=== PATIENT | male | born 1950 | race Two or more races ===

== ENCOUNTER 2016-12-17 16:00 | Emergency (ER) | payer SELFPAY ==
[~2016-12-17] VITALS: Ht 182.9 cm; Wt 83.9 kg
--- NOTE | 2016-12-17 16:15 | NUR ---
PT BIB [facility] C/O ETOH INTOX. A/OX4. PT STATES "I JUST WANT TO GO HOME". UNSTEADY GAIT. NO OTHER COMPLAINTS. IN ER BED 11.
[2016-12-17 16:47] LABS: BASOPHILS % (AUTO) 0.2 % (0.0-2.0); EOSINOPHILS % (AUTO) 0.3 % (0.0-6.0); HEMATOCRIT 41 % (39-51); HEMOGLOBIN 13.9 g/dL (13.5-17.5); LYMPHOCYTES # (AUTO) 1.4 /CMM (0.8-4.8); LYMPHOCYTES % (AUTO) 13.8 % (20.0-44.0); MEAN CORPUSCULAR HEMOGLOBIN 29 PG (26.0-33.0); MEAN CORPUSCULAR HGB CONC 34 g/dl (31.0-36.0); MEAN CORPUSCULAR VOLUME 87 fL (80-96); MONOCYTES # (AUTO) 1.2 /CMM (0.1-1.30); MONOCYTES % (AUTO) 11.4 % (2.0-12.0); NEUTROPHILS # (AUTO) 7.7 /CMM (1.8-8.9); NEUTROPHILS % (AUTO) 74.3 % (43.0-81.0); PLATELET COUNT (AUTO) 267 /CMM (150-450); RDW COEFFICIENT OF VARIATION 15.1 (11.5-15.0); RED BLOOD CELL COUNT(AUTO) 4.75 MIL/uL (4.5-6.0); WHITE BLOOD COUNT (AUTO) 10.3 K/uL (4.3-11.0)
[2016-12-17] MEDS ORDERED: IV NS 0.9% 1,000 ML ONE (16:50)
[2016-12-17] MEDS ORDERED: PANTOPRAZOLE 40 MG VIAL ONE (16:50)
[2016-12-17] MEDS ORDERED: IV SET PRIMARY 1 EA INFUS.SET MC ONE (16:50)
[2016-12-17] MEDS ORDERED: PANTOPRAZOLE 40 MG VIAL IV ONE (17:00)
[2016-12-17] MEDS ORDERED: IV NS 0.9% 1,000 ML BAG IV ONE (17:00)
[2016-12-17 17:02] LABS: CREATININE 2.8 mg/dL (0.6-1.3); POTASSIUM 3.6 mmol/L (3.5-5.1)
[2016-12-17 17:08] LABS: ALBUMIN 4.1 g/dL (3.4-5.0); BILIRUBIN,DIRECT 0.1 mg/dL (0.0-0.2); BILIRUBIN,TOTAL 0.7 mg/dL (0.2-1.0); TOTAL PROTEIN, SERUM 3.3 g/dL (6.4-8.2)
[2016-12-17 17:26] LABS: INR 0.98 (0.87-1.13); PROTHROMBIN TIME 10.5 SECS (9.5-12.7)
--- NOTE | 2016-12-17 17:33 | NUR ---
Patient is resting comfortably in bed with eyes closed. Easily aroused. VSS
--- NOTE | 2016-12-17 18:19 | NUR ---
IV removed. Catheter intact and site benign. Pressure and 4x4 applied to site. No bleeding noted. Patient discharged to home in stable condition. Written and verbal after care instructions given. Patient verbalizes understanding of instruction. AMBULATORY WITH STEADY GAIT. PROVIDED WITH BUS TOKENS PER REQUEST.
[2016-12-17 18:27] VITALS: BP 146/65
== END 2016-12-17 18:28 | disposition home or self-care (01) ==
LOC: ER 16:02
DX: F10.129 Alcohol abuse with intoxication, unspecified (principal); E86.0 Dehydration; N18.9 Chronic kidney disease, unspecified
CPT/HCPCS: 36415; 80048-TC; 80076-TC; 83690-TC; 85025-TC; 85730-TC; A4606; C9113; J7030; Z7610

== ENCOUNTER 2020-07-11 09:23 | Inpatient (IN) | payer MEDICARE ==
[~2020-07-11] VITALS: Ht 170.2 cm; Wt 55.8 kg
--- NOTE | 2020-07-11 09:45 | NUR ---
bibra c/o progressive weakness x 6 months. vs checked. hooked on monitor. iv acess started. blood draw done sent to lab. seen by
[2020-07-11 10:00] LABS: BASOPHILS # (AUTO) 0.1 /CMM (0.0-0.2); BASOPHILS % (AUTO) 0.7 % (0.0-2.0); EOSINOPHILS % (AUTO) 0.9 % (0.0-6.0); HEMATOCRIT 44 % (39-51); HEMOGLOBIN 14.5 g/dL (13.5-17.5); LYMPHOCYTES # (AUTO) 1.2 /CMM (0.8-4.8); LYMPHOCYTES % (AUTO) 15.1 % (20.0-44.0); MEAN CORPUSCULAR HGB CONC 33 g/dl (31.0-36.0); MEAN CORPUSCULAR VOLUME 88 fL (80-96); MONOCYTES # (AUTO) 0.7 /CMM (0.1-1.30); MONOCYTES % (AUTO) 8.3 % (2.0-12.0); NEUTROPHILS # (AUTO) 6.1 /CMM (1.8-8.9); PLATELET COUNT (AUTO) 419 /CMM (150-450); RED BLOOD CELL COUNT(AUTO) 5.03 MIL/uL (4.5-6.0); WHITE BLOOD COUNT (AUTO) 8.2 K/uL (4.3-11.0)
[2020-07-11 10:40] LABS: ALANINE AMINOTRANSFERASE 10 U/L (12-78); ALBUMIN 3.3 g/dL (3.4-5.0); ALKALINE PHOSPHATASE 85 U/L (46-116); ASPARTATE AMINOTRANSFERASE 22 U/L (15-37); BILIRUBIN,DIRECT 0.4 mg/dL (0.0-0.2); BILIRUBIN,TOTAL 1.2 mg/dL (0.2-1.0); CALCIUM, SERUM 12.7 mg/dL (8.5-10.1); CARBON DIOXIDE 26 mmol/L (21-32); CHLORIDE 92 mmol/L (98-107); CREATININE 1.5 mg/dL (0.6-1.3); GLUCOSE 103 mg/dL (74-106); POTASSIUM 3.8 mmol/L (3.5-5.1); SODIUM SERUM 136 mmol/L (136-145); TOTAL PROTEIN, SERUM 8.2 g/dL (6.4-8.2); UREA NITROGEN, BLOOD 26 mg/dL (7-18)
--- NOTE | 2020-07-11 10:55 | NUR ---
CALLED [facility], PAGED DR FARNSWORTH
[2020-07-11] MEDS ORDERED: IV NS 0.9% 1,000 ML BAG IV ONE (11:00)
--- NOTE | 2020-07-11 11:07 | NUR ---
pt unable to provide urine specimen a the moment. urinal provided. iv fluids running.
[2020-07-11] MEDS ORDERED: IV NS 0.9% 500 ML IV ONE (11:30)
--- NOTE | 2020-07-11 11:43 | NUR ---
covid pcr and antigen collected sent to lab
[2020-07-11] MEDS ORDERED: ACETAMINOPHEN 325 MG TABLET PO PRN (12:00)
[2020-07-11] MEDS ORDERED: ONDANSETRON HCL/PF 4 MG/2 ML VIAL IVP PRN (12:00)
[2020-07-11] MEDS ORDERED: Z GUARD REMEDY 2 OZ OINT TP PRN (12:00)
[2020-07-11] MEDS ORDERED: MAG HYDROX/AL HYDROX/SIMETH 30 ML UDC PO PRN (12:00)
[2020-07-11] MEDS ORDERED: MAGNESIUM HYDROXIDE 30 ML UDC PO PRN (12:00)
[2020-07-11] MEDS ORDERED: ENOXAPARIN SODIUM 40 MG/0.4 ML DISP.SYRIN SQ ONE (12:46)
[2020-07-11] MEDS: IV NS 0.9% 1,000 ML IV PRN (12:54)
[2020-07-11] MEDS: ENOXAPARIN SODIUM 40 MG/0.4 ML DISP.SYRIN SQ SCH (12:57)
[2020-07-11 13:15] LABS: BILIRUBIN,URINE Negative (NEGATIVE); COLOR,URINE YELLOW (YELLOW); LEUKOCYTE ESTERASE ,URINE Negative (NEGATIVE); NITRITE, URINE Negative (NEGATIVE); PH,URINE 5.5 (5.0-8.0); PROTEIN,URINE Negative (NEGATIVE); UGLUCOSE Negative (NEGATIVE)
[2020-07-11 13:46] LABS: WBC,URINE 0-2 /HPF (0-3)
[2020-07-11 13:48] LABS: BACTERIA,URINE Rare /HPF (None Seen); SQUAMOUS EPITHELIAL CELL,UR 0-2 /HPF (None Seen)
[2020-07-11] MEDS ORDERED: VANCOMYCIN 1 GM in IV D5W 250 ML IV ONE (16:00)
--- NOTE | 2020-07-11 19:16 | NUR ---
pt back from ct
[2020-07-11] MEDS: CEFTRIAXONE 1 G in IV D5W 50 ML IV SCH (20:03)
--- NOTE | 2020-07-12 00:44 | NUR ---
PATIENT REPOSITIONED. PATIENT IS KEPT COMFORTABLE. NO COMPLAINTS AT THIS TIME. PATIENT IS PROVIDED WITH PILLOWS FOR COMFORT.
--- NOTE | 2020-07-12 03:09 | NUR ---
PATIENT TITRATED FROM 4L TO 2L N/C
[2020-07-12 04:35] LABS: BASOPHILS % (AUTO) 0.1 % (0.0-2.0); HEMATOCRIT 40 % (39-51); HEMOGLOBIN 13.2 g/dL (13.5-17.5); LYMPHOCYTES # (AUTO) 1.1 /CMM (0.8-4.8); LYMPHOCYTES % (AUTO) 7.9 % (20.0-44.0); MEAN CORPUSCULAR HGB CONC 33 g/dl (31.0-36.0); MEAN CORPUSCULAR VOLUME 86 fL (80-96); MONOCYTES # (AUTO) 0.7 /CMM (0.1-1.30); MONOCYTES % (AUTO) 5.5 % (2.0-12.0); NEUTROPHILS # (AUTO) 11.6 /CMM (1.8-8.9); NEUTROPHILS % (AUTO) 86.5 % (43.0-81.0); PLATELET COUNT (AUTO) 374 /CMM (150-450); RED BLOOD CELL COUNT(AUTO) 4.66 MIL/uL (4.5-6.0); WHITE BLOOD COUNT (AUTO) 13.4 K/uL (4.3-11.0)
[2020-07-12 04:48] LABS: CALCIUM, SERUM 11.1 mg/dL (8.5-10.1); CARBON DIOXIDE 31 mmol/L (21-32); CHLORIDE 98 mmol/L (98-107); CREATININE 1.5 mg/dL (0.6-1.3); GLUCOSE 122 mg/dL (74-106); MAGNESIUM 1.3 mg/dL (1.8-2.4); PHOSPHORUS 2.8 mg/dL (2.5-4.9); POTASSIUM 4.1 mmol/L (3.5-5.1); SODIUM SERUM 136 mmol/L (136-145); UREA NITROGEN, BLOOD 23 mg/dL (7-18)
[2020-07-12 04:56] LABS: CHOLESTEROL 130 mg/dL (<200); HDL CHOLESTEROL 40 mg/dL (40-60); LDL 74 mg/dL (0-99); THYROID STIMULATING HORMONE 1.301 uIU/mL (0.358-3.74); TRIGLYCERIDES 66 mg/dL (30-150)
[2020-07-12] MEDS: IV NS 0.9% 1,000 ML IV PRN (05:32)
[2020-07-12] MEDS: VANCOMYCIN 0.75 GM in IV D5W 250 ML IV SCH ×2 (05:32→18:14)
[2020-07-12] MEDS ORDERED: PANTOPRAZOLE 40 MG TABLET.DR PO SCH (07:30)
--- NOTE | 2020-07-12 07:31 | NUR ---
ON ROOM AIR WITH 99% SPO2.
--- NOTE | 2020-07-12 07:35 | NUR ---
REPORT GIVEN TO SHAHEEN AMBROSIO FOR PATRICIA.
[2020-07-12] MEDS ORDERED: ENOXAPARIN SODIUM 40 MG/0.4 ML DISP.SYRIN SQ ONE (08:12)
[2020-07-12] MEDS ORDERED: PANTOPRAZOLE 40 MG TABLET.DR PO ONE (08:13)
[2020-07-12] MEDS: ENOXAPARIN SODIUM 40 MG/0.4 ML DISP.SYRIN SQ SCH (08:37)
[2020-07-12] MEDS ORDERED: Magnesium 1GM/D5W 100ML PREMIX 300 ML IV ONE (09:39)
[2020-07-12] MEDS: Magnesium 1GM/D5W 100ML PREMIX 100 ML IV SCH ×3 (09:42→12:10)
--- NOTE | 2020-07-12 10:35 | NUR ---
WOUND CARE CONSULT: PT PRESENTS WITH LARGE RAISED RED LESION TO RT SIDE OF NECK WITH SMALL OPENING AND PINK DRAINAGE, SMALL AMOUNT, PRESENT ON ADMISSION. RECOMMENDATIONS MADE FOR SKIN PROTECTION. DISCUSSED WITH NURSING STAFF. WILL SEE PRN.
--- NOTE | 2020-07-12 10:49 | NUR ---
SCIENTIFIC RESEARCH MANAGER SCIENTIFIC RESEARCH MANAGER SPOKE TO DNP CYNDY LOERA, PER DNP, HE WILL EVALUATE PATIENT AND NOTIFY SURGICAL CONSULT FOR NECK LESION.
[2020-07-12] MEDS ORDERED: IV NS 0.9% 250 ML IV ONE (11:32)
[2020-07-12] MEDS ORDERED: IOHEXOL-300 100 ML VIAL IV ONE (11:32)
[2020-07-12] MEDS ORDERED: CT SWABBABLE VALVE TRANS SET 1 EA INFUS.SET MC ONE (11:32)
[2020-07-12] MEDS ORDERED: PANTOPRAZOLE 40 MG VIAL IV SCH (14:30)
--- NOTE | 2020-07-12 16:46 | NUR ---
PER HEM/ONC, HOLD [facility] TOMORROW AM FOR CT NEEDLE GUIDED BIOPSY.
[2020-07-12] MEDS: CEFTRIAXONE 1 G in IV D5W 50 ML IV SCH (19:55)
--- NOTE | 2020-07-12 21:24 | NUR ---
ASSUMED CARE. REPORT RECEIVED FROM AM SHIFT DAILY JAMISON. PT AAOX4 NO ACUTE DISTRESS NOTED, RESP EVEN AND UNLABORED. PT DENIES PAIN OR DISCOMFORT AT THIS TIME. PT REMAINS ON CARDIAC MONITORING SHOWS NSR-79, CONTINUOUS POX WITH 02 SAT 95% ON RA. WILL CONTINUE TO MONITOR PT CLOSELY. CALL LIGHT WITHIN REACH.
--- NOTE | 2020-07-12 22:53 | NUR ---
BED LINEN CHANGED, GOWN CHANGED, PT ABLE TO REPOSITION SELF. CALL LIGHT WITHIN REACH. WILL CONTINUE TO MONITOR.
--- NOTE | 2020-07-13 01:00 | NUR ---
PT ASLEEP, NO ACUTE DISTRESS NOTED, RESP EVEN AND UNLABORED. NO PAIN OR DISCOMFORT NOTED AT THIS TIME. CALL LIGHT WITHIN REACH. WILL CONTINUE TO MONITOR PT CLOSELY.
--- NOTE | 2020-07-13 05:12 | NUR ---
PROCESSING SPEC AT BEDSIDE FOR AM LAB DRAW.
[2020-07-13 05:44] LABS: BASOPHILS # (AUTO) 0.1 /CMM (0.0-0.2); BASOPHILS % (AUTO) 0.8 % (0.0-2.0); EOSINOPHILS % (AUTO) 0.8 % (0.0-6.0); HEMATOCRIT 42 % (39-51); HEMOGLOBIN 13.6 g/dL (13.5-17.5); LYMPHOCYTES # (AUTO) 1.3 /CMM (0.8-4.8); LYMPHOCYTES % (AUTO) 11.6 % (20.0-44.0); MEAN CORPUSCULAR HGB CONC 32 g/dl (31.0-36.0); MEAN CORPUSCULAR VOLUME 86 fL (80-96); MONOCYTES # (AUTO) 0.7 /CMM (0.1-1.30); NEUTROPHILS % (AUTO) 80.8 % (43.0-81.0); PLATELET COUNT (AUTO) 371 /CMM (150-450); RED BLOOD CELL COUNT(AUTO) 4.87 MIL/uL (4.5-6.0); WHITE BLOOD COUNT (AUTO) 11.1 K/uL (4.3-11.0)
[2020-07-13 05:59] LABS: CALCIUM, SERUM 10.7 mg/dL (8.5-10.1); CREATININE 1.1 mg/dL (0.6-1.3); MAGNESIUM 1.8 mg/dL (1.8-2.4); POTASSIUM 5.2 mmol/L (3.5-5.1)
--- NOTE | 2020-07-13 05:59 | NUR ---
CONSENT FOR US GUIDED NECK BIOPSY PLACED IN CHART. SURGICAL CHECKLIST PLACED IN PT CHART.
--- NOTE | 2020-07-13 06:15 | NUR ---
SL LAC 18G INFILTRATED, REMOVED WITH ANGIOCATH INTACT, 4X4 AND PRESSURE APPLIED.
[2020-07-13] MEDS: VANCOMYCIN 0.75 GM in IV D5W 250 ML IV SCH ×2 (06:20→18:14)
[2020-07-13] MEDS: IV NS 0.9% 1,000 ML IV PRN (06:20)
--- NOTE | 2020-07-13 07:32 | NUR ---
REPORT GIVEN TO AM SHIFT DAILY JAMISON.
[2020-07-13] MEDS ORDERED: ENOXAPARIN SODIUM 40 MG/0.4 ML DISP.SYRIN SQ ONE (08:26)
[2020-07-13] MEDS ORDERED: PANTOPRAZOLE 40 MG VIAL ONE (08:26)
[2020-07-13] MEDS: ENOXAPARIN SODIUM 40 MG/0.4 ML DISP.SYRIN SQ SCH (08:33)
[2020-07-13] MEDS: PANTOPRAZOLE 40 MG VIAL IV SCH (08:33)
--- NOTE | 2020-07-13 09:00 | NUR ---
PATIENT A/OX4, BREATHING EVEN AND UNLABORED, NO SOB NOTED. NEEDS ATTENDED. KEPT COMFORTABLE. IVF INFUSING AND TOLERATING WELL.
[2020-07-13] MEDS ORDERED: IOHEXOL-300 100 ML VIAL IV ONE (09:20)
[2020-07-13] MEDS ORDERED: IV NS 0.9% 250 ML IV ONE (09:20)
[2020-07-13] MEDS ORDERED: CT SWABBABLE VALVE TRANS SET 1 EA INFUS.SET MC ONE (09:20)
--- NOTE | 2020-07-13 15:19 | NUR ---
PATIENT CAME BACK FROM US GUIDED BIOPSY. TOLERATED PROCEDURE WELL. BACK IN BED. WILL CONTINUE TO MONITOR VS.
--- NOTE | 2020-07-13 15:30 | NUR ---
DRESSING ON NECK REINFORCED.
--- NOTE | 2020-07-13 19:26 | NUR ---
ASSUMED CARE. REPORT RECEIVED FROM AM SHIFT DAILY JAMISON. PT AAOX4 NO ACUTE DISTRESS NOTED, RESP EVEN AND UNLABORED. PT DENIES PAIN OR DISCOMFORT AT THIS TIME. PT REMAINS ON CARDIAC MONITORING SHOWS NSR-80'S, CONTINUOUS POX WITH 02 SAT 96% ON RA. WILL CONTINUE TO MONITOR PT CLOSELY. CALL LIGHT WITHIN REACH.
[2020-07-13] MEDS: CEFTRIAXONE 1 G in IV D5W 50 ML IV SCH (19:35)
[2020-07-14] MEDS: IV NS 0.9% 1,000 ML IV PRN ×2 (00:39→17:14)
--- NOTE | 2020-07-14 00:44 | NUR ---
PT AAOX4, NO ACUTE DISTRESS NOTED, RESP EVEN AND UNLABORED. REMAINS PAIN FREE AND DENIES ANY DISCOMFORT NOTED AT THIS TIME. CALL LIGHT WITHIN REACH. WILL CONTINUE TO MONITOR PT CLOSELY.
[2020-07-14 05:27] LABS: CALCIUM, SERUM 10.4 mg/dL (8.5-10.1); CREATININE 1.1 mg/dL (0.6-1.3); POTASSIUM 3.4 mmol/L (3.5-5.1)
--- NOTE | 2020-07-14 05:56 | NUR ---
neck dressing reinforced with 4x4 gauze and kerlix applied.
[2020-07-14] MEDS: VANCOMYCIN 0.75 GM in IV D5W 250 ML IV SCH ×2 (06:05→17:50)
--- NOTE | 2020-07-14 06:16 | NUR ---
total pt care done, bed linen changed. provided new warm blankets. pt remains pain free at this time. no acute distress noted, resp even and unlabored. call light wihtin reach. will endorse to am shift.
[2020-07-14] MEDS ORDERED: PANTOPRAZOLE 40 MG VIAL ONE (07:50)
[2020-07-14] MEDS ORDERED: ENOXAPARIN SODIUM 40 MG/0.4 ML DISP.SYRIN SQ ONE (07:50)
[2020-07-14] MEDS: ENOXAPARIN SODIUM 40 MG/0.4 ML DISP.SYRIN SQ SCH (08:21)
[2020-07-14] MEDS: PANTOPRAZOLE 40 MG VIAL IV SCH (08:21)
[2020-07-14] MEDS ORDERED: CEFT1VIA15 IV (09:13)
[2020-07-14] MEDS ORDERED: VANC750F2 IV (09:13)
[2020-07-14] MEDS ORDERED: OLME40TA12 PO (09:14)
[2020-07-14 10:01] LABS: BASOPHILS # (AUTO) 0.1 /CMM (0.0-0.2); BASOPHILS % (AUTO) 1.3 % (0.0-2.0); EOSINOPHILS % (AUTO) 2.3 % (0.0-6.0); HEMATOCRIT 40 % (39-51); HEMOGLOBIN 13.5 g/dL (13.5-17.5); LYMPHOCYTES # (AUTO) 1.2 /CMM (0.8-4.8); LYMPHOCYTES % (AUTO) 13.4 % (20.0-44.0); MEAN CORPUSCULAR HGB CONC 33 g/dl (31.0-36.0); MEAN CORPUSCULAR VOLUME 86 fL (80-96); MONOCYTES # (AUTO) 0.7 /CMM (0.1-1.30); PLATELET COUNT (AUTO) 375 /CMM (150-450); WHITE BLOOD COUNT (AUTO) 9.3 K/uL (4.3-11.0)
[2020-07-14] MEDS ORDERED: POTASSIUM CL. PREMIX PERIPHER. 100 ML ONE (10:38)
[2020-07-14] MEDS: POTASSIUM CL. PREMIX PERIPHER. 50 ML IV SCH ×2 (10:44→11:57)
--- NOTE | 2020-07-14 13:18 | NUR ---
patient refused MRI, explained risks and benefits, still refused. Informed Zia Alexandria.
--- NOTE | 2020-07-14 14:10 | NUR ---
INFORMED CYNDY LOERA THAT PATIENT'S SBP RANGES FROM 160S-170S AND PATIENT STILL NPO AT THIS TIME. WAITING FOR MD ORDERS.
--- NOTE | 2020-07-14 15:34 | NUR ---
BANNER BED 118-1
--- NOTE | 2020-07-14 15:55 | NUR ---
REPORT GIVEN TO MAYNOR AMBROSIO FOR PATRICIA.
--- NOTE | 2020-07-14 16:22 | NUR ---
PATIENT TRANSFERRED TO ROOM 118-1 VIA ACLS PROTOCOL. NO DISTRESS NOTED. NEEDS ATTENDED.
--- NOTE | 2020-07-14 16:30 | NUR ---
ms rn note received patent from er with dx weakness and rt side neck mass, ,admitted under care dr jonas Shahid , lt fa hl intact and flushed well , hospital orientation done,vs,taken , using urinal for voiding , on npo status at this time , body check done , rt side with dressing would picture done, call light within reach , bed in lowest and locked position , on 2l nc saturation 98% at this time , no sob noted at this time
[2020-07-14 16:36] VITALS: BP 187/98
--- NOTE | 2020-07-14 17:43 | NUR ---
ms rn note spoke with dr jonas Shahid notified that bp 187/98 and wants to have flus hot , stated no at this time will order hospice eval
--- NOTE | 2020-07-14 19:17 | NUR ---
MS RN NOTES PATIENT IN BED, AWAKE, ALERT AND ORIENTED X 3-4. BREATHING EVEN AND UNLABORED ON ROOM AIR. SHOWS NO SIGNS OF ACUTE RESPIRATORY DISTRESS. NO ACUTE PAIN. IV ON L AC 18 RUNNING NS AT 100ML/HR. SHOWS NO SIGNS OF INFILTRATION, NO REDNESS. SAFETY PRECAUTIONS IN PLACE. BED IN LOWEST POSITION, LOCKED, AND CALL LIGHT KEPT WITHIN REACH. WILL CONTINUE TO MONITOR.
[2020-07-14 20:00] VITALS: BP 169/102
[2020-07-14] MEDS: AMPICILLIN 1 GM in IV NS 0.9% 50 ML IV SCH (20:21)
[2020-07-15 04:00] VITALS: BP 173/107
--- NOTE | 2020-07-15 04:01 | NUR ---
MS RN NOTES TRANSFERRED TO 321-2, GIVEN REPORT TO MICHAEL AMBROSIO FOR PATRICIA
--- NOTE | 2020-07-15 04:03 | NUR ---
RN NOTES RECEIVED PT. FROM ALESSANDRA , PT. IS A/OX4, NOT IN DISTRESS, NO PAIN NOTED, BED IN LOCKED POSITION, CALL LIGHT WITHIN REACH, SIDERAILSUPX2, WILL CONTINUE TO MONITOR
--- NOTE | 2020-07-15 06:45 | NUR ---
RN NOTES AWAKE, NOT IN DISTRESS, NO PAIN NOTED, MORNING CARE RENDERED, PT. NEEDS ATTENDED
[2020-07-15] MEDS: AMPICILLIN 1 GM in IV NS 0.9% 50 ML IV SCH ×3 (06:52→20:39)
[2020-07-15] MEDS: IV NS 0.9% 1,000 ML IV PRN ×2 (07:01→20:48)
[2020-07-15 08:00] VITALS: BP 161/95
--- NOTE | 2020-07-15 08:12 | NUR ---
WOUND CARE CONSULT: PT SEEN FOR SKIN ASSESSMENT AND NOTED TO HAVE BLANCHABLE REDNESS TO SACRUM, HEELS AND LEFT HIP WITH SCARRING TO RT HIP, PRESENT ON ADMISSION. DRESSING TO RT SIDE OF NECK IS DRY AND INTACT. RECOMMENDATIONS MADE FOR SKIN PROTECTION. DISCUSSED WITH NURSING STAFF. WILL SEE PRN. RHODES IN AGREEMENT WITH PLAN OF CARE.
[2020-07-15] MEDS: ENOXAPARIN SODIUM 40 MG/0.4 ML DISP.SYRIN SQ SCH (09:01)
[2020-07-15] MEDS: PANTOPRAZOLE 40 MG VIAL IV SCH (09:02)
[2020-07-15 09:46] LABS: CALCIUM, SERUM 10.5 mg/dL (8.5-10.1); CREATININE 1.1 mg/dL (0.6-1.3); POTASSIUM 2.9 mmol/L (3.5-5.1)
[2020-07-15] MEDS: POTASSIUM CL. PREMIX PERIPHER. 50 ML IV SCH ×4 (11:13→14:19)
[2020-07-15 16:00] VITALS: BP 166/96
[2020-07-15] MEDS ORDERED: PAMIDRONATE 90 MG in IV NS 0.9% 500 ML IV ONE (16:00)
--- NOTE | 2020-07-15 16:00 | NUR ---
m/s parking regulation enforcement officer: yard engineer f/u seen by dr. musa and discussed plan of care with pt.
--- NOTE | 2020-07-15 19:05 | NUR ---
m/s chief green officer: notes report given to anitha (leeroy) for continuity of care.
--- NOTE | 2020-07-15 19:15 | NUR ---
RN NOTES: RECEIVED LYING COMFORTABLY IN BED IN SEMI-FOWLERS POSITION, WITH O2 AT 2L/MIN VIA NC SPO2-98%, A/0X4, ORIENTED TO UNIT AND STAFF, ON NPO, IV CANNULA ON LFA G#18, WITH PAMIDRONATE INFUSION AT 125 ML/HR X 4 HOURS ONGOING STARTED AT 1600 PER ENDORSEMENT,ALMOST FINISHING THEN TO FOLLOW WITH NS AT 100 ML/HR, FALL SAFETY AND ASPIRATION PRECAUTION OBSERVED.BED LOW AND LOCKED, KEPT CALL LIGHT WITHIN EASY REACH.
[2020-07-15 20:00] VITALS: BP 133/80
--- NOTE | 2020-07-15 20:49 | NUR ---
RN NOTES: PAMIDRONATE COMPLETED AT 2039, IVF RESUME NEW BAG ON NS AT 125ML/HR STARTED AT 2047, NO PAIN OR DISCOMFORT, DRESSING ON THE NECK CLEAN AND INTATC NO DRAINAGE NOTED, KEPT CALL LIGHT WITHIN EASY REACH.
--- NOTE | 2020-07-16 03:19 | NUR ---
RN NOTES: NO PAIN OR DISCOMFORT, AWAKE IN BETWEEN, HE WATCH TV, NEEDS ATTENDED, HE GO BACK TO SLEEP, KEPT CALL LIGHT WITHIN EASY REACH, ON CLOSE VISUAL CHECK.
[2020-07-16] MEDS: AMPICILLIN 1 GM in IV NS 0.9% 50 ML IV SCH ×3 (04:06→21:04)
--- NOTE | 2020-07-16 05:29 | NUR ---
RN NOTES: AWAKE, MORNING CARE DONE, VERY COOPERATIVE, NO DISCOMFORT, PLEASANT PERSONALITY, NEEDS ATTENDED.
[2020-07-16 07:04] LABS: CALCIUM, SERUM 9.9 mg/dL (8.5-10.1); CREATININE 1.1 mg/dL (0.6-1.3); POTASSIUM 3.3 mmol/L (3.5-5.1)
--- NOTE | 2020-07-16 07:12 | NUR ---
RN NOTES: ENDORSED ASLEEP, TOTAL URINE OUTPUT-950, STILL NPO, FOR SWALLOW EVALUATION, FOR BLOOD TEST THIS MORNING, F/U PER DR. BURROWS HE IS A GOOD CANDIDATE FOR CHEMO.ENDORSED FOR CONTINUITY OF CARE.
--- NOTE | 2020-07-16 07:32 | NUR ---
MS RN OPENING NOTES: RECEIVED PT AWAKE IN BED IN NO ACUTE SIGNS OF DISTRESS. HOB ELEVATED. A/0X4, ABLE TO MAKE NEEDS KNOWN, DENIES PAIN BUT WITH MILD DISCOMFORTS ON HIS NECK. ON SUPPLEMENTAL 02 VIA N/C AT 2LPM, TOLERATING WELL , BREATHING EVEN AND UNLABORED. IV ACCESS ON LFA G#18 INTACT AND PATENT WITH IVF OF NS @ 100ML/HR INFUSING WELL. SAFETY AND ASPIRATION PRECAUTION MAINTAINED: BED IN LOWEST LOCKED POSITION WITH SR UP X2. CALL LIGHT WITHIN EASY REACH. WILL CONTINUE TO MONITOR PT.
[2020-07-16 08:00] VITALS: BP 160/93
[2020-07-16] MEDS: PANTOPRAZOLE 40 MG VIAL IV SCH (08:31)
[2020-07-16] MEDS: ENOXAPARIN SODIUM 40 MG/0.4 ML DISP.SYRIN SQ SCH (08:32)
[2020-07-16] MEDS: POTASSIUM CL. PREMIX PERIPHER. 50 ML IV SCH ×2 (09:54→11:09)
[2020-07-16] MEDS: IV NS 0.9% 1,000 ML IV PRN (13:21)
[2020-07-16 16:00] VITALS: BP 150/93
--- NOTE | 2020-07-16 18:48 | NUR ---
MS RN CLOSING NOTES: PT IN BED WATCHING TV AT THIS TIME. HOB ELEVATED. A/0X4, ABLE TO MAKE NEEDS KNOWN. DRESSING ON RIGHT NECK WOUND C/D/I. ON SUPPLEMENTAL 02 VIA N/C AT 2LPM, TOLERATING WELL, BREATHING EVEN AND UNLABORED. IV ACCESS ON LFA G#18 INTACT AND PATENT WITH IVF OF NS @ 100ML/HR INFUSING WELL. ALL NEEDS AND CARE ATTENDED WELL. SAFETY AND ASPIRATION PRECAUTION MAINTAINED: BED IN LOWEST LOCKED POSITION WITH SR UP X2. CALL LIGHT WITHIN EASY REACH. WILL ENDORSE PATRICIA TO NIGHT NURSE.
--- NOTE | 2020-07-16 20:00 | NUR ---
RN NOTES RECEIVED PT. AWAKE ON BED, A/OX3, NOT IN DISTRESS, DENIES PAIN, DRESSING ON HIS NECK DRY AND INTACT, CALL LIGHT WITHIN REACH, SIDERAILSUPX2, WILL CONTINUE TO MONIOTR
[2020-07-16 20:51] VITALS: BP 167/99
[2020-07-17] MEDS: AMPICILLIN 1 GM in IV NS 0.9% 50 ML IV SCH ×2 (04:33→13:42)
[2020-07-17] MEDS: IV NS 0.9% 1,000 ML IV PRN (05:27)
--- NOTE | 2020-07-17 06:50 | NUR ---
RN NOTES SLEEPING BUT AROUSABLE, MORNING CARE RENDERED, DENIES PAIN,. NO SOB, CALL LIGHT WITHIN REACH,SIDERAILSUPX2, PT. NEEDS ATTENDED
--- NOTE | 2020-07-17 07:37 | NUR ---
MS RN OPENING NOTES: RECEIVED PT AWAKE AND WATCHING TV.A/0X4. ABLE TO MAKE NEEDS KNOWN, DENIES PAIN BUT WITH MILD DISCOMFORTS ON HIS NECK. DRESSING ON RIGHT SIDE OF NECK C/D/I. ON 02 VIA N/C AT 2LPM, TOLERATING WELL , BREATHING EVEN AND UNLABORED. IV ACCESS ON LFA G#18 INTACT AND PATENT WITH IVF OF NS @ 100ML/HR INFUSING WELL. SAFETY MEASURES IN PLACE: BED IN LOWEST LOCKED POSITION WITH SR UP X2. CALL LIGHT WITHIN EASY REACH. WILL CONTINUE TO MONITOR PT.
[2020-07-17 08:21] LABS: POTASSIUM 2.8 mmol/L (3.5-5.1)
[2020-07-17] MEDS: PANTOPRAZOLE 40 MG VIAL IV SCH (08:48)
[2020-07-17] MEDS: ENOXAPARIN SODIUM 40 MG/0.4 ML DISP.SYRIN SQ SCH (08:49)
[2020-07-17] MEDS: POTASSIUM CL. PREMIX PERIPHER. 50 ML IV SCH ×6 (10:24→17:42)
--- NOTE | 2020-07-17 14:36 | NUR ---
RN NOTES ANTIGEN COVID 19 TEST DONE, SPECIMEN BROUGHT TO LAB. WILL F/U RESULTS.
--- NOTE | 2020-07-17 18:33 | NUR ---
MS RN CLOSING NOTES: PT IN BED WATCHING TV AT THIS TIME. HOB ELEVATED. A/0X4, ABLE TO MAKE NEEDS KNOWN. PT FOR DISCAHRGE TO [facility], CALLED AND REPORT GIVEN TO RNS ENRIQUE AND PT WILL GO TO ROOM 3E. DRESSING ON RIGHT NECK WOUND C/D/I. ON SUPPLEMENTAL 02 VIA N/C AT 2LPM, TOLERATING WELL, BREATHING EVEN AND UNLABORED. IV ACCESS ON LFA G#18 INTACT AND PATENT WITH IVF OF NS @ 100ML/HR INFUSING WELL. ALL NEEDS AND CARE ATTENDED WELL. SAFETY AND ASPIRATION PRECAUTION MAINTAINED: BED IN LOWEST LOCKED POSITION WITH SR UP X2. CALL LIGHT WITHIN EASY REACH. WILL ENDORSE TO NIGHT NURSE.
--- NOTE | 2020-07-17 19:46 | NUR ---
MS QUALITY HEAD NOTES: PATIENT DISCHARGED TO [facility] IN STABLE CONDITION. ALERT AND ORIENTED X4. VERBALLY RESPONSIVE V/S TAKEN, STABLE AND RECORDED. PHOTOS OF SKIN ISSUES AND PLACED IN CHART. ALL BELONGINGS ACCOUNTED FOR AND SIGNED FORM. IV ACCESS ON LFA #18G PATENT AND INTACT. PATIENT WILL RECEIVE ANTIBIOTIC THERAPY AT THE FACILITY TO KEEP IV LINE IN PLACE. DISCHARGED INSTRUCTIONS REPORTED TO DAILY NUNEZ DOCUMENT CLERK. HEALTH TEACHINGS GIVEN TO PATIENT AND VERBALIZED UNDERSTANDING. EXIT FOLDER HANDED TO EMT'S. PATIENT LEFT UNIT VIA GURNEY AT 1946 ACCOMPANIED BY 2 EMT'S. CHARGE NURSE AWARE OF DISCHARGE.
== END 2020-07-17 21:00 | DRG 146 ==
LOC: ER 09:25 → TRANSITION 11:30 → MEDSG1 07-14 16:03 → MED 07-15 03:37
PROVIDERS: ADMIT Registered Nurse
PROC: 0JB43ZX Excision of Right Neck Subcutaneous Tissue and Fascia, Percutaneous Approach, Diagnostic (ICD-10-PCS; principal; 2020-07-13)
DX: C76.0 Malignant neoplasm of head, face and neck (principal); N17.0 Acute kidney failure with tubular necrosis; R64 Cachexia; D84.9 Immunodeficiency, unspecified; E87.2 Acidosis; C79.51 Secondary malignant neoplasm of bone; B37.0 Candidal stomatitis; L04.0 Acute lymphadenitis of face, head and neck; E83.52 Hypercalcemia; E86.0 Dehydration; Z87.891 Personal history of nicotine dependence; Z20.822 Contact with and (suspected) exposure to COVID-19; R62.7 Adult failure to thrive; Z68.24 Body mass index [BMI] 24.0-24.9, adult; F10.10 Alcohol abuse, uncomplicated; Z59.0 Homelessness; Y90.9 Presence of alcohol in blood, level not specified; I12.9 Hypertensive chronic kidney disease with stage 1 through stage 4 chronic kidney disease, or unspecified chronic kidney disease; N18.9 Chronic kidney disease, unspecified; M89.9 Disorder of bone, unspecified; H49.20 Sixth [abducent] nerve palsy, unspecified eye; R13.10 Dysphagia, unspecified; D64.9 Anemia, unspecified; R91.1 Solitary pulmonary nodule; B95.2 Enterococcus as the cause of diseases classified elsewhere
CPT/HCPCS: 36415; 70450-TC; 70490-TC; 70491-TC; 71045-TC; 71270-TC; 74178; 76942-TC; 80048-TC; 80061-TC; 80076-TC; 80202-TC; 81001; 82330; 82378; 83605-TC; 83615-TC; 83735-TC; 84100-TC; 84443-TC; 84484-TC; 85025-TC; 85610-TC; 85730-TC; 87040-TC; 87070-TC; 87081-TC; 87086-TC; 87186-TC; 88305-TC; 88333-TC; 88341; 88342; 92526; 92611-TC; 97110-TC; 97112-TC; 97116-TC; 97530-TC; A6253; A6403; C9113; G0378; J0290; J0696; J1650; J2430; J3370; J3475; J3480; J7030; J7040; J7050; J7060; Q9967; U0003